=== PATIENT | female | born 1995 | race Caucasian/White ===

== ENCOUNTER → 2019-02-11 | Outpatient (CLI) | payer BC ==
--- NOTE | 2019-02-11 13:30 | CARD ---
MR#: [id number] Date of Study: 02/11/2019 Ordering Physician: NAJMA AGUILAR, Referring Physician: NAJMA AGUILAR, Tech: Tonia Grimes APPROVED REPORT EXAM: Two-dimensional and M-mode echocardiogram with Doppler and color Doppler. Other Information Quality : AverageHR: 66bpm INDICATION Syncope 2D DIMENSIONS RVDd2.1 (2.9-3.5cm)Left Atrium(2D)2.8 (1.6-4.0cm) IVSd0.7 (0.7-1.1cm)Aortic Root(2D)2.6 (2.0-3.7cm) LVDd4.3 (3.9-5.9cm)LVOT Diameter2.0 (1.8-2.4cm) PWd0.8 (0.7-1.1cm)LVDs3.1 (2.5-4.0cm) FS (%) 27.8 %SV45.7 ml LVEF(%)54.2 (>50%) Aortic Valve AoV Peak Wes.100.0cm/sAoV VTI21.7cm AO Peak GR.4.0mmHgLVOT Peak Wes.81.2cm/s LVOT VTI 18.37cmAO Mean GR.2mmHg EDWARDO (VMAX)2.57mm3FQN (VTI)2.70cm2 Mitral Valve MV E Zqbjmldv85.1cm/sMV DECEL LPJQ191br MV A Jflvioib81.2cm/sMV QKG96pm E/A Ratio1.4MVA (PHT)2.62cm2 TDI E/Lateral E'5.3E/Medial E'5.7 Pulmonary Valve PV Peak Zlnkfoju61.2cm/s Tricuspid Valve TR P. Tjgvzjta659yn/sRAP QJUTJNBL2vrEv TR Peak Gr.49muMzBXUK98ouSp Pulmonary Vein S1 Omvxesxb88.0cm/sD2 Uthfbgyt12.6cm/s PVa [id number] LEFT VENTRICLE The left ventricle is normal size. There is normal left ventricular wall thickness. The left ventricu lar systolic function is normal. The Ejection Fraction is 55-60%. There is normal LV segmental wall m otion. The left ventricular diastolic function and filling is normal for age. RIGHT VENTRICLE The right ventricle is normal size. There is normal right ventricular wall thickness. The right ventr icular systolic function is normal. ATRIA The left atrium size is normal. The right atrium size is normal. The interatrial septum is intact wit h no evidence for an atrial septal defect or patent foramen ovale as noted on 2-D or Doppler imaging. AORTIC VALVE The aortic valve is normal in structure and function. Doppler and Color Flow revealed no significant aortic regurgitation. There is no significant aortic valvular stenosis. MITRAL VALVE The mitral valve is thickened but opens well. There is no evidence of mitral valve prolapse. There is no mitral valve stenosis. Doppler and Color-flow revealed trace mitral regurgitation. TRICUSPID VALVE The tricuspid valve is normal in structure and function. Doppler and Color Flow revealed trace tricus pid regurgitation with an estimated PAP of 23 mmHg. There is no tricuspid valve stenosis. PULMONIC VALVE The pulmonary valve is normal in structure and function. Doppler and Color Flow revealed trace pulmon ic valvular regurgitation. GREAT VESSELS The aortic root is normal in size. The IVC is normal in size and collapses >50% with inspiration. PERICARDIAL EFFUSION There is no evidence of significant pericardial effusion. Critical Notification Critical Value: No <Conclusion> The left ventricular systolic function is normal. The Ejection Fraction is 55-60%. There is normal LV segmental wall motion. Trace mitral regurgitation. Trace tricuspid regurgitation with an estimated PAP of 23 mmHg. There is no evidence of significant pericardial effusion. Signed by : Nawaf Escalera, Electronically Approved : 02/11/2019 13:30:00
== END | disposition home or self-care (01) ==
LOC: ECHO 09:28
PROVIDERS: ATTEND Internal Medicine Cardiovascular Disease
DX: R55 Syncope and collapse (principal)
CPT/HCPCS: 93306